=== PATIENT | female | born 1955 | race Caucasian/White ===

== ENCOUNTER 2017-02-22 11:48 | Emergency (ER) | payer SELFPAY ==
[~2017-02-22] VITALS: Ht 152.4 cm; Wt 111.0 kg
[2017-02-22] MEDS ORDERED: ZESTRIL10 M1 PO ×2 (12:12→13:37)
[2017-02-22] MEDS ORDERED: JANUVIA50 MG PO ×2 (12:12→13:37)
[2017-02-22] MEDS ORDERED: CARVEDILOL6.25 MG PO ×2 (12:13→13:37)
[2017-02-22] MEDS ORDERED: ACCUPRIL5 MG PO (12:13)
[2017-02-22] MEDS ORDERED: MOTRIN800 MG PO (13:37)
[2017-02-22] MEDS ORDERED: FLEXERIL PO (13:37)
[2017-02-22] MEDS ORDERED: TRAMADOL HYDROC50 MG PO (13:37)
[2017-02-22 13:50] VITALS: BP 118/48
== END 2017-02-22 14:02 | disposition home or self-care (01) | DRG 552 ==
LOC: ED 11:48
DX: M54.16 Radiculopathy, lumbar region (principal); I11.0 Hypertensive heart disease with heart failure; I50.9 Heart failure, unspecified; E11.9 Type 2 diabetes mellitus without complications; J45.909 Unspecified asthma, uncomplicated; F41.9 Anxiety disorder, unspecified; Z86.73 Personal history of transient ischemic attack (TIA), and cerebral infarction without residual deficits

== ENCOUNTER 2024-10-05 14:03 | Emergency (ER) | payer MEDICARE ==
[~2024-10-05] VITALS: Ht 152.4 cm; Wt 110.0 kg
[~2024-10-05 14:03] MED LIST: ACCUPRIL5 MG PO; CARVEDILOL6.25 MG PO; FLEXERIL PO; JANUVIA50 MG PO; MOTRIN800 MG PO; TRAMADOL HYDROC50 MG PO; ZESTRIL10 M1 PO
[2024-10-05] MEDS ORDERED: CYCLOBENZAPRINE HCL 5 MG TAB PO ONE (14:20)
[2024-10-05] MEDS ORDERED: HYDROcodone 5 MG/Acetaminophen 325 MG/COMBO PO ONE (14:20)
[2024-10-05] MEDS ORDERED: CYCLOBENZAPRINE10 MG PO (14:46)
[2024-10-05] MEDS ORDERED: LORTAB 5/3255 MG PO (14:46)
[2024-10-05] MEDS ORDERED: FAMCICLOVIR500 MG PO (14:46)
[2024-10-05 16:46] VITALS: BP 137/54
== END 2024-10-05 16:54 | disposition home or self-care (01) ==
LOC: ED 14:03
DX: M50.30 Other cervical disc degeneration, unspecified cervical region (principal); B02.9 Zoster without complications; E11.9 Type 2 diabetes mellitus without complications; I10 Essential (primary) hypertension; Z86.73 Personal history of transient ischemic attack (TIA), and cerebral infarction without residual deficits; Z79.01 Long term (current) use of anticoagulants

== ENCOUNTER 2024-11-06 13:17 | Emergency (ER) | payer MEDICARE ==
[~2024-11-06] VITALS: Ht 152.4 cm; Wt 108.8 kg
[~2024-11-06 13:17] MED LIST changes: +CYCLOBENZAPRINE10 MG PO; +FAMCICLOVIR500 MG PO; +LORTAB 5/3255 MG PO
[2024-11-06 18:32] VITALS: BP 121/62
== END 2024-11-06 18:34 | disposition left against medical advice (07) ==
LOC: ED 13:17 → LWOBS 18:16
DX: Z53.21 Procedure and treatment not carried out due to patient leaving prior to being seen by health care provider (principal)

== ENCOUNTER 2024-11-08 10:54 | Emergency (ER) | payer MEDICARE ==
[~2024-11-08] VITALS: Ht 152.4 cm; Wt 108.0 kg
[2024-11-08] VITALS (35 sets, daily range): BP systolic 99–168; BP diastolic 46–101
[2024-11-08 13:16] LABS: BASO% 0.6 % (0-3); EOS% 0.7 % (0-8); HEMATOCRIT 45.6 % (37.0-47.0); HEMOGLOBIN 14.8 g/dl (12.0-16.0); IMMATURE GRANULOCYTES 0.1 % (0.0-5.0); MEAN CELL VOLUME 88.2 fL CALC (80.0-100.0); MEAN CORPUSCULAR HGB 28.6 pG CALC (26.0-32.0); MEAN CORPUSCULAR HGB CONC 32.5 g/dL CAL (32.0-36.0); MONO% 6.5 % (2-13); NEUT# 4.75 thou/uL (2.00-7.15); NEUT% 70.1 % (42-76); RED BLOOD COUNT 5.17 mill/uL (4.20-5.60); RED CELL DISTRI WIDTH 11.7 % (11.5-15.5)
[2024-11-08 13:31] LABS: ALBUMIN 4.5 g/dL (3.2-5.0); BILIRUBIN, TOTAL 0.8 mg/dL (0.02-1.3); CREATININE 0.8 mg/dL (0.5-1.0); POTASSIUM 4.8 mmol/l (3.5-5.1); TOTAL PROTEIN 7.4 g/dL (6.3-8.2)
[2024-11-08] MEDS ORDERED: LACTATED RINGER'S 1,000 ML IV PRN (14:10)
[2024-11-08] MEDS ORDERED: LACTATED RINGER'S 1,000 ML IV ONE (14:15)
[2024-11-08] MEDS ORDERED: KETOROLAC TROMETHAMINE 30 MG/ML SDV IV ONE (15:50)
[2024-11-08] MEDS ORDERED: PROPOFOL 200 MG/20 ML VIAL IV ONE (16:18)
== END 2024-11-08 17:10 | disposition short-term general hospital (02) ==
LOC: ED 10:54
PROVIDERS: Nurse Practitioner
PROC: 0RSJXZZ Reposition Right Shoulder Joint, External Approach (ICD-10-PCS; principal; 2024-11-08)
DX: S43.014A Anterior dislocation of right humerus, initial encounter (principal); E11.9 Type 2 diabetes mellitus without complications; I10 Essential (primary) hypertension; Z86.73 Personal history of transient ischemic attack (TIA), and cerebral infarction without residual deficits; Z79.84 Long term (current) use of oral hypoglycemic drugs; Z20.822 Contact with and (suspected) exposure to COVID-19; W18.30XA Fall on same level, unspecified, initial encounter; Y92.009 Unspecified place in unspecified non-institutional (private) residence as the place of occurrence of the external cause